=== PATIENT | male | born 1965 | race Two or more races ===

== ENCOUNTER 2022-06-20 11:14 | Outpatient (CLI) | payer OTHER | END 2022-06-20 20:57 | disposition home or self-care (01) | LOC: SMI 11:14 | PROVIDERS: ATTEND Family Medicine | DX: S41.011A Laceration without foreign body of right shoulder, initial encounter (principal); M19.011 Primary osteoarthritis, right shoulder; X58.XXXA Exposure to other specified factors, initial encounter; Y93.89 Activity, other specified; Y92.89 Other specified places as the place of occurrence of the external cause; Y99.8 Other external cause status | CPT/HCPCS: 73221 ==